=== PATIENT | male | born 1940 | race Caucasian/White ===

== ENCOUNTER → 2017-12-04 | Day surgery (SDC) | payer MEDICARE ==
[~2017-12-04] VITALS: Ht 185.4 cm; Wt 88.0 kg
[~2017-12-04] MED LIST: ACETAMINOPHEN 325 MG TAB PO PRN; ASCO500T16 PO; ASPI81TA28 PO; ATROPINE SULFATE 0.1 MG/ML 5ML SYR IV PRN; CHOL100040 PO; CLIN300C10 PO; FENTANYL CITRATE INJ 50 MCG/1 ML 2 ML VIAL ONE; FLUV100T12 PO; HEPARIN SOD (PORCINE) 1000 UNIT/ML 10 ML VIAL ONE; LISI-787 PO; LORA-741 PO; LORA10TA51 PO; MIDAZOLAM HCL 1 MG/ML 2ML VIAL ONE; MULT-884 PO; NITROGLYCERIN/D5W 100MCG/ML 20ML SYR ONE; NiCARDipine HCL INJ 2.5 MG/ML 10 ML AMP ONE; POTA-335 PO; PROB1TAB16 PO; SIMV20TA2 PO; SODIUM CHLORIDE 0.9% 1000ML 1,000 ML IV SCH; SODIUM CHLORIDE 0.9% 1000ML 250 ML IV PRN
[2017-12-04 07:20] VITALS: BP 160/93; PULSE 72; TEMP 36.8; O2SAT 96; Ht 185.4 cm; Wt 88.0 kg
--- NOTE | 2017-12-04 09:05 | History & Physical Bridge Note ---
H&P Re-Evaluation Bridge Note: I have examined the patient, reviewed the History & Physical and in the interval since the performance of the History & Physical I have noted the following changes of clinical significance: No changes noted
--- NOTE | 2017-12-04 09:05 | Pre Sedation Assessment ---
Pre Sedation Assessment General Date of Sedation: Dec 04, 2017. Vital Signs Past 12 Hours Date Time Temp Pulse Resp B/P (MAP) Pulse Ox O2 Delivery O2 Flow Rate FiO2 12/04/17 08:58 70 18 138/80 (99) 98 Room Air 12/04/17 07:20 36.8 72 18 160/93 (115) 96 Room Air Review Cardiovascular: regular rate, rhythm, + systolic murmur Lungs: lungs clear Pre-Sedation Airway Assessment Smoking Status: Never Smoker Hx of Sleep Apnea: No Short Thick Neck: No Thyro-mental Distance: > 3 Finger Breadths Oral Cavity: WNL Mallampati Classification: Class I ASA Classification: Class II NPO Status Date of Last Intake of Fluids: Dec 03, 2017 Date of Last Intake of Solids: Dec 03, 2017 Procedure Planning Contraindications for Sedation: None Current Medications Reviewed: Yes Notes The planned sedation has been discussed with the patient. Informed Consent was obtained. I have identified the patient, determined the appropriateness of sedation and have assessed the patient immediately prior to the procedure. All medicine(s) and interventions are by my order.
--- NOTE | 2017-12-04 09:19 | [facility] Post Operative Brief Note ---
Preliminary Procedure Note Procedure Date Dec 04, 2017. Pre-Procedure Diagnosis Valvular Disease AUC Score 7 Post-Procedure Diagnosis Mild CAD Procedure(s) Performed Coronary Angiography [employer] Dr. Ziyad Mccarty Kettle Chipper(s) Hugh Enciso Estimated Blood Loss <15cc Medication(s) Fentanyl (12.5 mcg IV), Heparin (5000u IV), Nicardipine (250mcg intraarterial after radial sheath inserted and prior to removal), Versed (1mg IV), Lidocaine 1 % (local infiltration) Preliminary Findings Right dominant coronary anatomy Mild coronary calcification and luminal irregularities LM long no disease LAD large type 3 with 30% mid vessel stenosis only. Large high diagonal LCX large but nondominant with bifurcating OM RCA Dominant, moderate caliber Recommendations valve replacement Specimens None Fluids (cc crystalloids) 120 Anesthesia Start 0841 End 0858 Tati Locke RN Procedural Complication(s) None Disposition Human Resource Officer Holding/Recovery
--- NOTE | 2017-12-04 09:30 | Cardiac Catheterization ---
Procedure Note Procedure Date Dec 04, 2017. Pre-Procedure Diagnosis Valvular Disease AUC Score 7 Post-Procedure Diagnosis Mild CAD Procedure(s) Performed Coronary Angiography Precise [facility] Dr. Ziyad Mccarty Recycling Tech(s) Hugh Gerardo Estimated Blood Loss <15cc Medication(s) Fentanyl (12.5 mcg IV), Heparin (5000u IV), Nicardipine (250 mcg intraarterial after radial sheath insertion and prior to removal), Versed (1mg IV), Lidocaine 1% (local infiltration) Summary of Findings Right dominant coronary anatomy Mild coronary calcification and luminal irregularities LM long no disease LAD large type 3 with 30% mid vessel stenosis only. Large high diagonal LCX large but nondominant with bifurcating OM RCA Dominant, moderate caliber AV calcified with restricted mobility Hemodynamics Rest Ao: 122/55/97 Final Ao: 138/66/97 LV: Did not cross AV Recommendations valve replacement Specimens None Radiation Exposure (mGy) 928 Contrast (mls) 62 Fluids (cc crystalloids) 120 Anesthesia Start 0841 End 0858 Tati Locke RN Procedural Complication(s) None Disposition Inbound Call Center Agent Holding/Recovery ACC Data Cardiac Status Clinical evaluation leading to the procedure CAD Presntation: Positive Stress Test Anginal Classification: CCS II Heart Failure: No Cardiogenic Shock w/in 24Hrs: No Cardiac Arrest w/in 24Hrs: Yes Imaging studies past 6 months: Yes Stress studies past 6 months: Yes Standard Exercise Stress Test: No Stress Echocardiogram: Yes - Positive Stress Testing w/SPECT MPI: No Cardiac CTA: No Coronary Anatomy Dominant: Right Left Main (% Stenosis): Normal LAD (% Stenosis): Mid (30) D1 (% Stenosis): Normal Circumflex (% Stenosis): Normal OM1 (% Stenosis): Normal RCA (% Stenosis): Normal R PDA (% Stenosis): Normal R PL1 (% Stenosis): Normal Diagnostic Physician's Name: Ziyad Mccarty M.D. Status: Elective Closure Device Percutaneous Entry Location: Radial Closure Device: Radial Band Recommendations: valve replacement
--- NOTE | 2017-12-04 09:32 | Discharge Instructions ---
Discharge Instructions Procedure Procedure Date: Dec 04, 2017. Reason for Visit: Severe Aortic Stenosis *Dr Lul Pierce*. Discharge Discharge Date: Dec 04, 2017. Discharge Diagnosis: Calcific aortic valve stenosis, Minimal coronary artery disease Last Recorded Wt (Kilograms): 88 Anesthesia Post Anesthesia Instructions: If you have had General Anesthesia or IV Sedation: * Do not drive today. * Resume driving when surgeon permits. * Do not make important decisions or sign legal documents today. * Call surgeon for: 1. Temperature elevations greater than 101 degrees F. 2. Uncontrollable pain. 3. Excessive bleeding. 4. Persistent nausea and vomiting. 5. Medication intolerance (nausea, vomiting or rash). * For nausea and vomiting use only clear liquids such as: tea, soda, bouillon until nausea subsides, then gradually increase diet as tolerated. * If you have any concerns or questions, call your surgeon's office. If physician is unavailable and it is an emergency, call 911 or go to the nearest emergency room. Instructions Activity Recommendations: limitations as noted below Recommended Home Diet: resume previous diet Allergies: Coded Allergies: Cephalexin (Verified Adverse Reaction, Unknown, diarrhea, 09/22/16) Metronidazole (Verified Adverse Reaction, Unknown, diarrhea, 09/22/16) Provider Instructions ACTIVITY RECOMMENDATIONS: Excess manipulation of the wrist should be avoided for the next 24-48 hours. * No lifting over 2 pounds (approximately a 1/2 gallon of milk) with the utilized arm for 24 hours. * No strenuous activity such as bowling or tennis for 3 days. * Keep the site of the procedure covered with a bandage for 24 hours. *You may shower the day after the procedure. Do not take a tub bath or submerge the puncture site in water for the next 3 days. *Do not operate any motorized equipment for 3 days. SPECIAL CARE INSTRUCTIONS: The site may be slightly bruised and sore following your procedure. Should any of the following occur, contact the Dr. who performed your procedure. 1. Redness/inflammation, swelling, chills, or fever, or colored drainage at procedure site within 3-7 days after your procedure. 2. Coldness, discoloration, ongoing numbness, severe pain, or swelling. Expect mild tingling of hand and tenderness at the puncture site for up to three days. If this persists beyond three days, or other symptoms develop, notify the Dr. who performed your procedure. BLEEDING: If the procedure site on your wrist begins to bleed, do not panic 1. Place 1 or 2 fingers firmly just slightly above the insertion site to stop the bleeding. You may be able to feel your pulse as you hold pressure. 2. Lift your finger after 5 minutes to see if the bleeding has stopped. 3. Once the bleeding has stopped, gently wipe the wrist area clean with a bandage. * If the bleeding from your wrist does not stop after 10 minutes, or if there is a large amount of bleeding or spurting, call 911 (do not drive yourself to the hospital). SKIN IRRITATION: * You may experience some redness and/or swelling in the area where radiation was administered. If any skin irritation occurs, please contact your family physician. FOLLOW UP VISIT: Keep any scheduled doctor appointments. Follow Up Additional Instructions: ACTIVITY RECOMMENDATIONS: Excess manipulation of the wrist should be avoided for the next 24-48 hours. * No lifting over 2 pounds (approximately a 1/2 gallon of milk) with the utilized arm for 24 hours. * No strenuous activity such as bowling or tennis for 3 days. * Keep the site of the procedure covered with a bandage for 24 hours. *You may shower the day after the procedure. Do not take a tub bath or submerge the puncture site in water for the next 3 days. *Do not operate any motorized equipment for 3 days. SPECIAL CARE INSTRUCTIONS: The site may be slightly bruised and sore following your procedure. Should any of the following occur, contact the Dr. who performed your procedure. 1. Redness/inflammation, swelling, chills, or fever, or colored drainage at procedure site within 3-7 days after your procedure. 2. Coldness, discoloration, ongoing numbness, severe pain, or swelling. Expect mild tingling of hand and tenderness at the puncture site for up to three days. If this persists beyond three days, or other symptoms develop, notify the Dr. who performed your procedure. BLEEDING: If the procedure site on your wrist begins to bleed, do not panic 1. Place 1 or 2 fingers firmly just slightly above the insertion site to stop the bleeding. You may be able to feel your pulse as you hold pressure. 2. Lift your finger after 5 minutes to see if the bleeding has stopped. 3. Once the bleeding has stopped, gently wipe the wrist area clean with a bandage. * If the bleeding from your wrist does not stop after 10 minutes, or if there is a large amount of bleeding or spurting, call 911 (do not drive yourself to the hospital). SKIN IRRITATION: * You may experience some redness and/or swelling in the area where radiation was administered. If any skin irritation occurs, please contact your family physician. FOLLOW UP VISIT: Keep any scheduled doctor appointments. Follow-up with: Cardiovascular Surgery as scheduled 12/08/17 Lazara Macias Recommendations: Call your doctor if: * Temperature above 101 degrees * Pain not relieved by pain medicine ordered * There is increased drainage or redness from any incision * You have any unanswered questions or concerns. Your Doctors Instructions noted above were prepared by provider Ziyad Mccarty. Patient Signature Section: Patient Instructions Signature Page Johan Wilson Patient (or Guardian) Signature/Date: I have read and understand the instructions given to me by my caregivers. Caregiver/RN/Doctor Signature/Date: The above-named patient and/or guardian has received patient instructions on this date. + Original Patient Signature Page (only) stays with chart. Please make copy for patient.
[2017-12-04 11:00] VITALS: BP 148/64; PULSE 60; O2SAT 98
== END | disposition home or self-care (01) ==
LOC: C.CATH 07:00
PROVIDERS: ATTEND Internal Medicine Cardiovascular Disease
DX: I35.0 Nonrheumatic aortic (valve) stenosis (principal); I25.10 Atherosclerotic heart disease of native coronary artery without angina pectoris; I10 Essential (primary) hypertension; E78.5 Hyperlipidemia, unspecified; Z79.899 Other long term (current) drug therapy; Z79.82 Long term (current) use of aspirin; Z98.41 Cataract extraction status, right eye; Z98.890 Other specified postprocedural states

== ENCOUNTER 2021-04-28 14:32 | Inpatient (IN) ==
[2021-04-28] MEDS ORDERED: SODIUM CHLORIDE 0.9% 1000ML 1,000 ML IV STA (14:41)
[2021-04-28] MEDS ORDERED: LIDOCAINE/EPINEPHRINE 1% 20 ML VIAL INFIL ONE (14:48)
--- NOTE | 2021-04-28 15:08 | Emergency Department Note ---
History of Present Illness General Chief complaint: Syncope Stated complaint: HAVING BLACK OUT SPELLS-DOC REF Time Seen by Provider: 04/28/21 14:41 History of Present Illness Provider complaint: Syncopal episode Onset (ago): hour(s) 2 Location: head Radiation: non-radiation Severity: mild Quality: + aching Relieved By: + none Exacerbated By: + none Associated symptoms: no confusion, no chest pain, no cough, no fever/chills, no headaches, no nausea/vomiting, no rash, no shortness of breath, no syncope and no weakness 80-year-old male presents emergency department status post syncopal episode. Patient reports he was outside with weeding and then he passed out and hit his head. Patient states that the third syncopal episode he has had in the last week. Patient states he has a problem with syncope and is scheduled by Dr. Lul hopkins to have a pacemaker inserted next week. Denies any chest pain difficulty breathing or headaches at this time. Patient states he called [facility] and spoke with Dr. Dye who is on-call who told him to come into the hospital. Home Medications Medication Instructions Recorded Confirmed Type aspirin [Aspirin Low Dose] 81 mg PO QAM 04/09/21 04/28/21 History fluvoxamine 200 mg PO HS 04/09/21 04/28/21 History lorazepam 0.5 mg PO BID 04/09/21 04/28/21 History metoprolol tartrate 25 mg PO QAM 04/09/21 04/28/21 History multivitamin 1 tab PO QAM 04/09/21 04/28/21 History simvastatin 20 mg PO QAM 04/09/21 04/28/21 History lisinopril 10 mg PO DAILY 04/28/21 04/28/21 History Allergies Allergy/AdvReac Type Severity Reaction Status Date / Time cephalexin AdvReac Intermediate diarrhea Verified 04/28/21 15:39 metronidazole AdvReac Intermediate diarrhea Verified 04/28/21 15:39 Past Med/Surg History Medical History (Updated 04/28/21 @ 18:11 by Andrez Elizabeth) Basal cell carcinoma Dyslipidemia GERD (gastroesophageal reflux disease) HTN (hypertension) Surgical History (Updated 04/28/21 @ 18:01 by Jany Bates MD) H/O colonoscopy with polypectomy "03/01/02- polyp at 15cm (hyperplastic) " Social History Smoking Status: Never smoker Preferred Language: Kittitian Feels Safe at Home: Yes Review of Systems A total of 10 systems reviewed and were otherwise negative Physical Exam Vital Signs Vital Signs - 24 hr 04/28/21 14:35 04/28/21 14:42 04/28/21 16:34 Temperature 36.6 C Temperature Source Temporal Artery Scan Pulse Rate 106 H Respiratory Rate 18 Respiratory Effort / Characteristics Non-Labored Spontaneous Respiratory Depth Normal Respiratory Pattern Regular Blood Pressure 159/98 H Blood Pressure [Right Arm] 173/87 H Blood Pressure Mean 118 Blood Pressure Mean [Right Arm] 115 Pulse Oximetry 99 Oxygen Delivery Method Room Air Room Air Sepsis Recent Fever Within 48 Hours No Sepsis New/Unexplained Change in Mental Status No Sepsis Action Taken by Nursing No Action Required Physical Exam GENERAL: He is oriented to person, place, and time. He appears well-developed and well-nourished. He does not appear distressed. HENT: Exam performed. - Head: 2 cm laceration over the right parietal area. No active bleeding. - Right Ear: External ear normal. No mastoid tenderness. - Left Ear: External ear normal. No mastoid tenderness. - Mouth/Throat: The oropharynx is clear and moist. No trismus in the jaw. No dental abscesses or uvula swelling. No oropharyngeal exudate or tonsillar abscesses. EYES: Conjunctivae and EOM are normal. Pupils are equal, round, and reactive to light. Right eye exhibits no discharge. Left eye exhibits no discharge. No scleral icterus. NECK: Normal range of motion. Neck supple. No JVD present. No spinous process tenderness present. No carotid bruit present. No rigidity. No tracheal deviation and normal range of motion present. No Brudzinski's sign and no Kernig's sign noted. CV: Normal rate, regular rhythm, normal heart sounds and intact distal pulses. There is no peripheral edema. Palpable radial pulses bue. PULM/CHEST: Effort normal and breath sounds normal. No respiratory distress. No stridor. He has no wheezes. He has no rales. - Chest Wall: He exhibits no tenderness. ABD: The abdomen is soft. Bowel sounds are normal. He has no distension. No mass is present. There is no tenderness. There is no rebound, no guarding, no Grant's sign and no tenderness at McBurney's point. Rovsig negative. MUSC/SKEL: Normal range of motion. There is no peripheral edema, tenderness or deformity. LYMPH: No cervical adenopathy. NEURO: He is alert and oriented to person, place, and time. He has normal strength. No cranial nerve deficit or sensory deficit. Coordination and gait normal. GCS eye subscore is 4. GCS verbal subscore is 5. GCS motor subscore is 6. Cerebellar tests wnl. SKIN: Skin is warm and dry. He is not diaphoretic. PSYCH: He has a normal mood and affect. Behavior is normal. Judgment and thought content normal. Procedures Laceration Laceration 1: Site: scalp Side (If applicable): right Size (cm): 2 Description: linear Depth: simple, single layer Local Anesthetic: lidocaine 1% and with epi Amount of anesthesia used (mL): 6 Pre-repair: wound explored, irrigated extensively and deep structures intact Skin layer closed with: other (naima) Number of sutures: 3 Course Course 1441: The patient was evaluated in room B6. A complete history and physical exam was performed Cardiac monitoring: An order was placed for continuous cardiac monitoring. The monitor shows a rate of 105 with sinus tachycardia rhythm Dr. Dye [facility] cardiology called in and stated to have the patient admitted after initial evaluation as he needs a pacemaker placed sooner than later given his recurrent syncopal episode. 1700: Vital signs stable. Labs within normal limits with exception of elevated troponin. Imaging shows no acute traumatic injury. Laceration repaired see procedure note. [facility] and recurrent falls. Dr. Bates to admit. Administered Medications Discontinued Medications Sodium Chloride (Nss 1000ml) 1,000 mls @ 999 mls/hr IV .Q1H1M STA Stop: 04/28/21 15:41 Last Infusion: 04/28/21 17:00 Dose: 0 mls/hr Documented by: [id number] Admin: 04/28/21 15:30 Dose: 999 mls/hr Documented by: [id number] Lidocaine/Epinephrine (Lidocaine/Epinephrine 1% 20 Ml Vial) 20 ml INFIL NOW ONE Stop: 04/28/21 14:49 Last Admin: 04/28/21 15:30 Dose: 20 ml Documented by: [id number] Medical Decision Making Laboratory Data Result diagrams: 04/28/21 15:20 04/28/21 15:20 Lab Results 04/28/21 04/28/21 04/28/21 Range/Units 15:20 15:20 17:09 WBC 6.26 (4.8-10.8) K/uL RBC 4.67 L (4.7-6.1) M/uL Hgb 14.9 (14.0-18.0) g/dL Hct 43.1 (42-52) % MCV 92.3 (80-100) fL MCH 31.9 (25-34) pg MCHC 34.6 (32-36) g/dL RDW Std Deviation 41.6 (36.4-46.3) fL RDW Coeff of Cole 12.4 (11.5-14.5) % Plt Count 175 (130-400) K/uL MPV 9.9 (7.4-10.4) fL Immature Gran % (Auto) 0.2 % Neut % (Auto) 74.5 % Lymph % (Auto) 13.3 % Dickinson % (Auto) 10.7 % Eos % (Auto) 1.0 % Baso % (Auto) 0.3 % Neut # (Auto) 4.67 (1.4-6.5) K/uL Lymph # (Auto) 0.83 L (1.2-3.4) K/uL Dickinson # (Auto) 0.67 H (0.11-0.59) K/uL Eos # (Auto) 0.06 (0-0.5) K/uL Baso # (Auto) 0.02 (0-0.2) K/uL Immature Gran # (Auto) 0.01 (0.00-0.02) K/uL Sodium 143 (136-145) mmol/L Potassium 3.9 (3.5-5.1) mmol/L Chloride 109 H (98-107) mmol/L Carbon Dioxide 29 (21-32) mmol/L Anion Gap 5.0 (3-11) BUN 15 (7-18) mg/dl Creatinine 1.29 (0.6-1.4) mg/dl Est Cr Clr Drug Dosing 49.9 ml/min Est GFR ( Amer) 59.4 ml/min Est GFR (Non-Af Amer) 51.3 ml/min BUN/Creatinine Ratio 11.3 (10-20) Glucose 136 H (70-99) mg/dl Calcium 9.3 (8.5-10.1) mg/dl Total Bilirubin 0.4 (0.2-1) mg/dl AST 24 (15-37) U/L ALT 28 (12-78) U/L Alkaline Phosphatase 87 (45-117) U/L Troponin I 0.059 H* (0-0.045) ng/ml Total Protein 7.4 (6.4-8.2) gm/dl Albumin 3.8 (3.4-5.0) gm/dl Globulin 3.6 (2.5-4.0) gm/dl Albumin/Globulin Ratio 1.1 (0.9-2) Lipase 268 (73-393) U/L COVID-19 Eval Order Covid19 at [facility] Imaging Data Radiologist's Impression: Cervical Spine CT 04/28/21 14:41 CT OF THE CERVICAL SPINE CLINICAL HISTORY: chi COMPARISON STUDY: No previous studies for comparison. CT DOSE: 217.80 mGy.cm TECHNIQUE: CT scan of the cervical spine was performed from the skull base to the thoracic inlet. Images are reviewed in the axial, sagittal, and coronal planes. IV contrast was not administered for this examination. A dose lowering technique was utilized adhering to the principles of ALARA. FINDINGS: The visualized portions of the lung apices reveal no evidence of pneumothorax. The prevertebral soft tissues are normal. No fractures or subluxations are visualized. There is a loss of normal cervical lordosis. There are multilevel degenerative changes, most severe at C5-C6 level IMPRESSION: No evidence of acute fracture or traumatic subluxation. ACT 112: Negative or not required by law. The above report was generated using voice recognition software. It may contain grammatical, syntax or spelling errors. Electronically signed by: Patti Bryan DO 04/28/2021 4:[address] 04/28/21 14:41 CT head/brain wo con CLINICAL HISTORY: chi COMPARISON STUDY: April 09, 2021 TECHNIQUE: Axial CT of the brain is performed from the vertex to the skull base. IV contrast was not administered for this examination. A dose lowering technique was utilized adhering to the principles of ALARA. CT DOSE: FINDINGS: No intra or extra-axial mass lesions are visualized. There is no CT evidence of acute cortical infarction. There is no evidence of midline shift. There is no acute hemorrhage. No acute depressed calvarial fractures are visualized. There are patchy white matter hypodensities likely on a small vessel basis. Atrophic changes of brain parenchyma are seen and associated with ex vacuo dilatation of ventricles. There is no evidence of acute sinusitis. Evaluation is slightly limited due to motion artifact. IMPRESSION: No acute intracranial hemorrhage, no midline shift or space occupying lesions. Slightly limited exam due to motion artifact. ACT 112: Negative or not required by law. The above report was generated using voice recognition software. It may contain grammatical, syntax or spelling errors. Electronically signed by: Patti Bryan DO 04/28/2021 4:42 PM Chest X-Ray 04/28/21 14:42 XR chest 1V portable CLINICAL HISTORY: Chest Pain COMPARISON STUDY: No previous studies for comparison. FINDINGS: No pneumothorax. No pleural effusion. No large infiltrates or consolidative lesions are seen. Lung volumes are decreased with crowded lung markings Cardiomediastinal silhouette is within normal limits in size. No significant pulmonary vascular congestion.. Aorta is calcified Osseous structures: Degenerative changes of the spine. Midline sternotomy wires and prosthetic aortic valve are seen. IMPRESSION: 1. No acute pulmonary process. ACT 112: Negative or not required by law. The above report was generated using voice recognition software. It may contain grammatical, syntax or spelling errors. Electronically signed by: Patti Bryan DO 04/28/2021 3:19 PM ECG Data Indication: + syncope Rate (beats per minute): 85 Rhythm: + normal sinus ECG Intervals/blocks: + Left bundle branch block, + Normal CO and + Normal QT-c ECG ST segments: + Normal ST segments Comparison ECG Date: from (04/09/21) Change: no significant change Additional Comments: sgarbosa negative MDM Narrative 1441: The patient was evaluated in room B6. A complete history and physical exam was performed Cardiac monitoring: An order was placed for continuous cardiac monitoring. The monitor shows a rate of 105 with sinus tachycardia rhythm Dr. Hardik Arguelles cardiology called in and stated to have the patient admitted after initial evaluation as he needs a pacemaker placed sooner than later given his recurrent syncopal episode. 1700: Vital signs stable. Labs within normal limits with exception of elevated troponin. Imaging shows no acute traumatic injury. Laceration repaired see procedure note. We will plan on admitting the patient to [facility] hospitalist team for cardiology evaluation for his pacemaker and recurrent falls. Dr. Bates to admit. Impression & Plan Syncope and collapse, CHI (closed head injury), Laceration of scalp Discharge Plan Visit Data Chief Complaint: Syncope Stated Complaint: HAVING BLACK OUT SPELLS-DOC REF ED Provider: Andrez Elizabeth Discharge Problem: Syncope and collapse, CHI (closed head injury), Laceration of scalp Patient Disposition: Being Evaluated by Hospitalist Forms Stand Alone Forms: [facility] Prescriptions Prescriptions: No Action multivitamin Tablet 1 tab PO QAM RF: 0 aspirin [Aspirin Low Dose] 81 mg Tablet,Delayed Release (Dr/Ec) 81 mg PO QAM RF: 0 lorazepam 0.5 mg tablet 0.5 mg PO BID RF: 0 fluvoxamine 100 mg tablet 200 mg PO HS RF: 0 simvastatin 20 mg tablet 20 mg PO QAM RF: 0 metoprolol tartrate 25 mg tablet 25 mg PO QAM RF: 0 lisinopril 10 mg tablet 10 mg PO DAILY RF: 0 Referrals Referrals: Sudhir Roberts MD [Primary Care Provider] - Discharge Problem: CHI (closed head injury) Qualifiers: Encounter type: initial encounter Qualified Code(s): S09.90XA - Unspecified injury of head, initial encounter Laceration of scalp Qualifiers: Encounter type: initial encounter Qualified Code(s): S01.01XA - Laceration without foreign body of scalp, initial encounter
--- NOTE | 2021-04-28 15:20 | XRay Report ---
XR chest 1V portable CLINICAL HISTORY: Chest Pain COMPARISON STUDY: No previous studies for comparison. FINDINGS: No pneumothorax. No pleural effusion. No large infiltrates or consolidative lesions are seen. Lung volumes are decreased with crowded lung markings Cardiomediastinal silhouette is within normal limits in size. No significant pulmonary vascular congestion.. Aorta is calcified Osseous structures: Degenerative changes of the spine. Midline sternotomy wires and prosthetic aortic valve are seen. IMPRESSION: 1. No acute pulmonary process. ACT 112: Negative or not required by law. The above report was generated using voice recognition software. It may contain grammatical, syntax o r spelling errors. Electronically signed by: Patti Bryan DO 04/28/2021 3:19 PM
[2021-04-28 15:40] LABS: Basophils # (auto) 0.02 K/uL (0-0.2); Basophils % (auto) 0.3 %; Eosinophils # (auto) 0.06 K/uL (0-0.5); Hematocrit (blood only) 43.1 % (42-52); Hemoglobin 14.9 g/dL (14.0-18.0); Immature Granulocytes # (auto) 0.01 K/uL (0.00-0.02); Immature Granulocytes % (auto) 0.2 %; Lymphocytes # (auto) 0.83 K/uL (1.2-3.4); Lymphocytes % (auto) 13.3 %; Mean Corpuscular Hemoglobin 31.9 pg (25-34); Mean Corpuscular Hgb Conc 34.6 g/dL (32-36); Mean Corpuscular Volume 92.3 fL (80-100); Mean Platelet Volume 9.9 fL (7.4-10.4); Monocytes # (auto) 0.67 K/uL (0.11-0.59); Monocytes % (auto) 10.7 %; Neutrophils # (auto) 4.67 K/uL (1.4-6.5); Neutrophils % (auto) 74.5 %; Platelet Count 175 K/uL (130-400); RDW Coefficient of Variation 12.4 % (11.5-14.5); RDW Standard Deviation 41.6 fL (36.4-46.3); Red Blood Count 4.67 M/uL (4.7-6.1); White Blood Count 6.26 K/uL (4.8-10.8)
[2021-04-28 16:00] LABS: Albumin Level 3.8 gm/dl (3.4-5.0); BUN Creatinine Ratio 11.3 (10-20); Calcium 9.3 mg/dl (8.5-10.1); Creatinine Clr Calc Pharmacy 49.9 ml/min; Est GFR (African American) 59.4 ml/min; Est GFR (Non-African American) 51.3 ml/min; Potassium 3.9 mmol/L (3.5-5.1)
[2021-04-28 16:09] LABS: Albumin Globulin Ratio 1.1 (0.9-2); Bilirubin,Total 0.4 mg/dl (0.2-1); Globulin 3.6 gm/dl (2.5-4.0); Total Protein 7.4 gm/dl (6.4-8.2); Troponin I 0.059 ng/ml (0-0.045)
--- NOTE | 2021-04-28 16:43 | CT Scan Report ---
CT head/brain wo con CLINICAL HISTORY: chi COMPARISON STUDY: April 09, 2021 TECHNIQUE: Axial CT of the brain is performed from the vertex to the skull base. IV contrast was not administered for this examination. A dose lowering technique was utilized adhering to the principles of ALARA. CT DOSE: FINDINGS: No intra or extra-axial mass lesions are visualized. There is no CT evidence of acute cortical infarc tion. There is no evidence of midline shift. There is no acute hemorrhage. No acute depressed calvar ial fractures are visualized. There are patchy white matter hypodensities likely on a small vessel basis. Atrophic changes of brain parenchyma are seen and associated with ex vacuo dilatation of ventricles. There is no evidence of acute sinusitis. Evaluation is slightly limited due to motion artifact. IMPRESSION: No acute intracranial hemorrhage, no midline shift or space occupying lesions. Slightly limited exam due to motion artifact. ACT 112: Negative or not required by law. The above report was generated using voice recognition software. It may contain grammatical, syntax o r spelling errors. Electronically signed by: Patti Bryan DO 04/28/2021 4:42 PM
--- NOTE | 2021-04-28 17:00 | CT Scan Report ---
CT OF THE CERVICAL SPINE CLINICAL HISTORY: chi COMPARISON STUDY: No previous studies for comparison. CT DOSE: 217.80 mGy.cm TECHNIQUE: CT scan of the cervical spine was performed from the skull base to the thoracic inlet. Erin ges are reviewed in the axial, sagittal, and coronal planes. IV contrast was not administered for thi s examination. A dose lowering technique was utilized adhering to the principles of ALARA. FINDINGS: The visualized portions of the lung apices reveal no evidence of pneumothorax. The prevertebral soft tissues are normal. No fractures or subluxations are visualized. There is a loss of normal cervical lordosis. There are multilevel degenerative changes, most severe at C5-C6 level IMPRESSION: No evidence of acute fracture or traumatic subluxation. ACT 112: Negative or not required by law. The above report was generated using voice recognition software. It may contain grammatical, syntax o r spelling errors. Electronically signed by: Patti Bryan DO 04/28/2021 4:58 PM
--- NOTE | 2021-04-28 18:03 | History & Physical Report ---
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 Consult cardiology (2) S/P AVR (aortic valve replacement): (3) Hypertension: We will continue current medications for blood pressure except beta- guera (4) OCD (obsessive compulsive disorder): No acute anxiety and/or delirium Continue home medication DVT prophylaxis Subcu heparin CODE STATUS Full History of Present Illness Chief Complaint: Syncopal episode Primary Care Provider: Sudhir Roberts MD He is an 80-year-old male with significant past medical history of status post aortic valve replacement, hypertension, CAD mild disease by cath in 2018, VINCENT, obsessive-compulsive disorder, hyperlipidemia and chronic kidney disease was evaluated by cardiac electrophysiology yesterday for an emergent pacemaker. He has been complaining of syncopal episode due to ronna-arrhythmia for a while and was sent in to ER today by the necktie turner for admission and emergent cardiac pacemaker placement. He denies any chest pain but does have palpitation. Denies any shortness of breath. No fever no chills, and abdominal pain nausea no vomiting. He does not have any neurological symptoms. He was hemodynamically stable in the emergency room with blood pressure on the higher side at 173/87. An EKG did not show any significant bradyarrhythmias. He was admitted to telemetry unit for continuation of care and possible pacemaker placement on Friday. Allergies Allergy/AdvReac Type Severity Reaction Status Date / Time cephalexin AdvReac Intermediate diarrhea Verified 04/28/21 15:39 metronidazole AdvReac Intermediate diarrhea Verified 04/28/21 15:39 Home Medications Medication Instructions Recorded Confirmed Type aspirin [Aspirin Low Dose] 81 mg PO QAM 04/09/21 04/28/21 History fluvoxamine 200 mg PO HS 04/09/21 04/28/21 History lorazepam 0.5 mg PO BID 04/09/21 04/28/21 History metoprolol tartrate 25 mg PO QAM 04/09/21 04/28/21 History multivitamin 1 tab PO QAM 04/09/21 04/28/21 History simvastatin 20 mg PO QAM 04/09/21 04/28/21 History lisinopril 10 mg PO DAILY 04/28/21 04/28/21 History Past Med/Surg History Medical History (Updated 04/28/21 @ 18:11 by Andrez Elizabeth) Basal cell carcinoma Dyslipidemia GERD (gastroesophageal reflux disease) HTN (hypertension) Surgical History (Updated 04/28/21 @ 18:01 by Jany Bates MD) H/O colonoscopy with polypectomy "03/01/02- polyp at 15cm (hyperplastic) " Social History Smoking Status: Never smoker Preferred Language: Surinamese Feels Safe at Home: Yes Review of Systems Review of Systems: All systems reviewed & are unremarkable except as noted in HPI & below Physical Exam Physical Exam: Lying in bed comfortably Constitutional: well developed and well nourished; not ill appearing Eyes: PERRL, conjunctivae normal, anicteric sclerae ENMT: external ear and nose normal, oropharynx normal Neck: trachea midline, no thyromegaly Respiratory: no respiratory distress Auscultation: lungs clear to auscultation bilaterally Cardiovascular: Rate/Rhythm: regular rate and regular rhythm Heart Sounds: + murmur (2/6 ejection systolic murmur over precordium) Extremities: + edema (Trace to 1+ edema bilaterally) Gastrointestinal (Abdomen): Inspection/Auscultation: abdomen not distended Percussion/Palpation: abdomen soft; abdomen nontender Musculoskeletal: No acute arthritis in any joint Neurologic: Alert, awake and oriented x3. No focal sensory or no motor deficit appreciated Psychiatric: A+Ox3, euthymic affect Lymphatic: no cervical or axillary lymphadenopathy Results & Data Results & Data ([facility]) Vital Signs (Past 12 Hours) Vital Signs Temp Pulse Resp BP BP Pulse Ox 04/28/21 16:34 173/87 H 04/28/21 14:35 36.6 C 106 H 18 159/98 H 99 Laboratory Results Short CBC 04/28/21 Range/Units 15:20 WBC 6.26 (4.8-10.8) K/uL Hgb 14.9 (14.0-18.0) g/dL Hct 43.1 (42-52) % Plt Count 175 (130-400) K/uL [facility] 04/28/21 15:20 Sodium 143 Potassium 3.9 Chloride 109 H Carbon Dioxide 29 BUN 15 Creatinine 1.29 Glucose 136 H Calcium 9.3 Cardiac Enzymes 04/28/21 Range/Units 15:20 Troponin I 0.059 H* (0-0.045) ng/ml Liver Function 04/28/21 Range/Units 15:20 Total Bilirubin 0.4 (0.2-1) mg/dl AST 24 (15-37) U/L ALT 28 (12-78) U/L Alkaline Phosphatase 87 (45-117) U/L Albumin 3.8 (3.4-5.0) gm/dl Code Status & VTE Plan Code Status Full code VTE Prophylaxis Plan VTE Prophylaxis will be ordered: Yes
[2021-04-28] MEDS: HEPARIN SOD 5,000 UNIT/0.5 ML VIAL SQ SCH (20:54)
[2021-04-28] MEDS: lisinopril 10 MG TAB PO SCH (20:54)
[2021-04-28] MEDS: LORazepam 0.5 MG TAB PO SCH (20:54)
[2021-04-28] MEDS: NSS + 20MEQ KCL 20 MEQ/1,000 ML BAG IV SCH (20:55)
[2021-04-28] MEDS ORDERED: fluvoxaMINE MALEATE 50 MG TAB PO SCH (21:00)
--- NOTE | 2021-04-28 21:05 | Electrocardiogram Report ---
Test Reason : Blood Pressure : / mmHG Vent. Rate : 085 BPM Atrial Rate : 085 BPM P-R Int : 128 ms QRS Dur : 116 ms QT Int : 394 ms P-R-T Axes : 057 -15 120 degrees QTc Int : 468 ms Normal sinus rhythm Left bundle branch block Abnormal ECG Confirmed by Jaquan Underwood ([id number]) on 04/28/2021 9:05:40 PM Referred By: Ziyad Mccarty Confirmed By:Avni Underwood
[2021-04-28] MEDS ORDERED: hydrALAZINE HCL 20 MG/ML VIAL IV STA (23:36)
[2021-04-29 03:08] LABS: Basophils # (auto) 0.01 K/uL (0-0.2); Basophils % (auto) 0.2 %; Eosinophils # (auto) 0.07 K/uL (0-0.5); Eosinophils % (auto) 1.2 %; Hematocrit (blood only) 40.8 % (42-52); Hemoglobin 14.2 g/dL (14.0-18.0); Immature Granulocytes # (auto) 0.01 K/uL (0.00-0.02); Immature Granulocytes % (auto) 0.2 %; Lymphocytes # (auto) 1.32 K/uL (1.2-3.4); Mean Corpuscular Hemoglobin 31.8 pg (25-34); Mean Corpuscular Hgb Conc 34.8 g/dL (32-36); Mean Corpuscular Volume 91.5 fL (80-100); Mean Platelet Volume 9.4 fL (7.4-10.4); Monocytes # (auto) 0.59 K/uL (0.11-0.59); Monocytes % (auto) 10.3 %; Neutrophils # (auto) 3.75 K/uL (1.4-6.5); Neutrophils % (auto) 65.1 %; Platelet Count 164 K/uL (130-400); RDW Coefficient of Variation 12.2 % (11.5-14.5); RDW Standard Deviation 41.1 fL (36.4-46.3); Red Blood Count 4.46 M/uL (4.7-6.1); White Blood Count 5.75 K/uL (4.8-10.8)
[2021-04-29 03:39] LABS: Calcium 8.8 mg/dl (8.5-10.1); Est GFR (African American) 72.9 ml/min; Est GFR (Non-African American) 62.9 ml/min; Phosphorus 2.6 mg/dl (2.5-4.9); Potassium 4.1 mmol/L (3.5-5.1)
[2021-04-29] MEDS ORDERED: lisinopril 10 MG TAB PO STA (04:16)
[2021-04-29] MEDS: lisinopril 10 MG TAB PO SCH (08:57)
[2021-04-29] MEDS: ASPIRIN 81 MG ECTAB PO SCH (08:57)
[2021-04-29] MEDS: SIMVASTATIN 20 MG TAB PO SCH (08:57)
[2021-04-29] MEDS: HEPARIN SOD 5,000 UNIT/0.5 ML VIAL SQ SCH ×2 (08:57→20:10)
[2021-04-29] MEDS: MULTIVITAMIN TAB PO SCH (08:57)
[2021-04-29] MEDS: LORazepam 0.5 MG TAB PO SCH ×2 (09:00→20:10)
[2021-04-29] MEDS: NSS + 20MEQ KCL 20 MEQ/1,000 ML BAG IV SCH (10:07)
--- NOTE | 2021-04-29 11:58 | Cardiology Consultation ---
Date of Consultation April 29, 2021 Assessment & Plan (1) Syncope and collapse: (2) Laceration of scalp: (3) S/P AVR (aortic valve replacement): (4) Tachy-ronna syndrome: Spoke with Dr. Sepulvdea over the phone. She will be available to place a permanent pacemaker tomorrow. For now he will remain on telemetry. N.p.o. after midnight. History of Present Illness Attending Physician: Jany Bates MD History of Present Illness This is an 80-year-old male patient who has been having syncopal events. He was seen by Dr. Sepulveda in the office on Friday who recommended a permanent pacemaker for tachybradycardia syndrome or sick sinus. Unfortunately yesterday he had another event where he passed out. No significant trauma. He contacted me through the answering service and I recommended he come to the emergency department where he has been admitted. After admission he has had no further syncopal events and his heart rhythm has been stable on telemetry. Allergies Allergy/AdvReac Type Severity Reaction Status Date / Time cephalexin AdvReac Intermediate diarrhea Verified 04/28/21 15:39 metronidazole AdvReac Intermediate diarrhea Verified 04/28/21 15:39 Home Medications Medication Instructions Recorded Confirmed Type aspirin [Aspirin Low Dose] 81 mg PO QAM 04/09/21 04/28/21 History fluvoxamine 200 mg PO HS 04/09/21 04/28/21 History lorazepam 0.5 mg PO BID 04/09/21 04/28/21 History metoprolol tartrate 25 mg PO QAM 04/09/21 04/28/21 History multivitamin 1 tab PO QAM 04/09/21 04/28/21 History simvastatin 20 mg PO QAM 04/09/21 04/28/21 History lisinopril 10 mg PO DAILY 04/28/21 04/28/21 History Patient History Medical History Basal cell carcinoma Dyslipidemia GERD (gastroesophageal reflux disease) HTN (hypertension) Surgical History H/O colonoscopy with polypectomy "03/01/02- polyp at 15cm (hyperplastic) " Social History Smoking Status: Never smoker Hx Alcohol Use: No Hx Substance Use: No Preferred Language: [place] Islander Intake Counselor Required: No Beliefs That Will Affect Care: Yazdanism Current Living Situation: Spouse Current Living Situation Comment: Lives with at home Feels Safe at Home: Yes Safety Concerns: Feels Safe At This Time Assistive Devices: None Review of Systems Review of Systems: All systems reviewed & are unremarkable except as noted in HPI & below Nothing additional to add. Physical Exam Physical Exam: General: no acute distress and stated age Head: normocephalic, no masses, lesions, tenderness or abnormalities Eyes: conjunctiva are pink and non-injected, sclera clear Neck: supple, no adenopathy, no bruits, normal jugular venous pulse, no hepatojugular reflux Chest: normal shape and normal respiratory effort Lungs: clear to auscultation and percussion Cardiac Exam: - regular rate & rhythm, no murmurs gallops or rubs - normal S1, normal S2 Pulses: 2(+) throughout Abdomen: abdomen soft, non-tender, no abnormal masses and no hepatosplenomegaly Musculoskeletal: no gait disturbance, no joint inflammation, no deforming arthritis Extremities: no edema and no cyanosis Neuro: grossly normal exam Results & Data ([facility]) Vital Signs (Past 12 Hours) Vital Signs Temp Pulse Pulse Resp BP Pulse Ox 04/29/21 08:08 36.5 C 75 18 164/84 H 94 04/29/21 07:56 115 H 04/29/21 04:12 36.6 C 75 18 193/77 H 96 04/29/21 00:06 85 Laboratory Results Laboratory Results - last 24 hr 04/28/21 04/28/21 04/28/21 15:20 15:20 17:09 WBC 6.26 RBC 4.67 L Hgb 14.9 Hct 43.1 MCV 92.3 MCH 31.9 MCHC 34.6 RDW Std Deviation 41.6 RDW Coeff of Cole 12.4 Plt Count 175 MPV 9.9 Immature Gran % (Auto) 0.2 Neut % (Auto) 74.5 Lymph % (Auto) 13.3 [place] % (Auto) 10.7 Eos % (Auto) 1.0 Baso % (Auto) 0.3 Neut # (Auto) 4.67 Lymph # (Auto) 0.83 L [place] # (Auto) 0.67 H Eos # (Auto) 0.06 Baso # (Auto) 0.02 Immature Gran # (Auto) 0.01 Sodium 143 Potassium 3.9 Chloride 109 H Carbon Dioxide 29 Anion Gap 5.0 BUN 15 Creatinine 1.29 Est Cr Clr Drug Dosing 49.9 Est GFR ( Amer) 59.4 Est GFR (Non-Af Amer) 51.3 BUN/Creatinine Ratio 11.3 Glucose 136 H Calcium 9.3 Phosphorus Magnesium Total Bilirubin 0.4 AST 24 ALT 28 Alkaline Phosphatase 87 Troponin I 0.059 H* Total Protein 7.4 Albumin 3.8 Globulin 3.6 Albumin/Globulin Ratio 1.1 Lipase 268 COVID-19 Eval Order Covid19 at [facility] SARS-CoV-2 (PCR) 04/28/21 04/28/21 04/29/21 17:09 21:31 02:58 WBC 5.75 RBC 4.46 L Hgb 14.2 Hct 40.8 L MCV 91.5 MCH 31.8 MCHC 34.8 RDW Std Deviation 41.1 RDW Coeff of Cole 12.2 Plt Count 164 MPV 9.4 Immature Gran % (Auto) 0.2 Neut % (Auto) 65.1 Lymph % (Auto) 23.0 [place] % (Auto) 10.3 Eos % (Auto) 1.2 Baso % (Auto) 0.2 Neut # (Auto) 3.75 Lymph # (Auto) 1.32 [place] # (Auto) 0.59 Eos # (Auto) 0.07 Baso # (Auto) 0.01 Immature Gran # (Auto) 0.01 Sodium Potassium Chloride Carbon Dioxide Anion Gap BUN Creatinine Est Cr Clr Drug Dosing Est GFR ( Amer) Est GFR (Non-Af Amer) BUN/Creatinine Ratio Glucose Calcium Phosphorus Magnesium Total Bilirubin AST ALT Alkaline Phosphatase Troponin I 0.090 H* Total Protein Albumin Globulin Albumin/Globulin Ratio Lipase COVID-19 Eval Order SARS-CoV-2 (PCR) NEGATIVE 04/29/21 04/29/21 02:58 02:58 WBC RBC Hgb Hct MCV MCH MCHC RDW Std Deviation RDW Coeff of Cole Plt Count MPV Immature Gran % (Auto) Neut % (Auto) Lymph % (Auto) [place] % (Auto) Eos % (Auto) Baso % (Auto) Neut # (Auto) Lymph # (Auto) [place] # (Auto) Eos # (Auto) Baso # (Auto) Immature Gran # (Auto) Sodium 145 Potassium 4.1 Chloride 114 H Carbon Dioxide 30 Anion Gap 1.0 L BUN 12 Creatinine 1.09 Est Cr Clr Drug Dosing 59.0 Est GFR ( Amer) 72.9 Est GFR (Non-Af Amer) 62.9 BUN/Creatinine Ratio 11.0 Glucose 101 H Calcium 8.8 Phosphorus 2.6 Magnesium 2.0 Total Bilirubin AST ALT Alkaline Phosphatase Troponin I 0.190 H* Total Protein Albumin Globulin Albumin/Globulin Ratio Lipase COVID-19 Eval Order SARS-CoV-2 (PCR) Medications Administered Current Inpatient Medications Aspirin (Aspirin 81 Mg Ectab) 81 mg PO QAM [facility] Stop: 05/29/21 08:59 Last Admin: 04/29/21 08:57 Dose: 81 mg Documented by: Fluvoxamine Maleate (Fluvoxamine Maleate 50 Mg Tab) 200 mg PO HS [facility] Stop: 05/28/21 20:59 Last Admin: 04/28/21 20:55 Dose: 200 mg Documented by: Heparin Sodium (Porcine) (Heparin Sod 5,000 Unit/0.5 Ml Vial) 5,000 units SQ Q12 MARY Stop: 05/28/21 20:59 Last Admin: 04/29/21 08:57 Dose: 5,000 units Documented by: Lisinopril (Lisinopril 10 Mg Tab) 10 mg PO DAILY MARY Stop: 05/28/21 20:59 Last Admin: 04/29/21 08:57 Dose: 10 mg Documented by: Lorazepam (Lorazepam 0.5 Mg Tab) 0.5 mg PO BID MARY Stop: 05/28/21 20:59 Last Admin: 04/29/21 09:00 Dose: 0.5 mg Documented by: Multivitamins (Multivitamin Tab) 1 tab PO QAM MARY Stop: 05/29/21 08:59 Last Admin: 04/29/21 08:57 Dose: 1 tab Documented by: Simvastatin (Simvastatin 20 Mg Tab) 20 mg PO QAM [facility] Stop: 05/29/21 08:59 Last Admin: 04/29/21 08:57 Dose: 20 mg Documented by: (1) Laceration of scalp Encounter type: initial encounter Qualified Code(s): S01.01XA - Laceration without foreign body of scalp, initial encounter
--- NOTE | 2021-04-29 12:49 | Hospitalist Progress Note ---
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 Consult cardiology-appreciate input and recommendation Likely to have pacemaker placement tomorrow-n.p.o. after midnight (2) S/P AVR (aortic valve replacement): (3) Hypertension: We will continue current medications for blood pressure except beta- guera Blood pressure is controlled (4) OCD (obsessive compulsive disorder): No acute anxiety and/or delirium Continue home medication DVT prophylaxis Subcu heparin CODE STATUS Full Admission and Anticipated Discharge Date Admission Date: April 28, 2021 Subjective 04/29/2021 The patient was seen and examined in telemetry unit Denies any symptoms today and did not have any more syncopal episode He did not have any bradyarrhythmias in monitor We will likely have pacemaker placement tomorrow Review of Systems Review of Systems: All systems reviewed and are unremarkable except as noted below Physical Exam Physical Exam: Lying in bed comfortably Constitutional: well developed and well nourished; not ill appearing Eyes: PERRL, conjunctivae normal, anicteric sclerae ENMT: external ear and nose normal, oropharynx normal Neck: trachea midline, no thyromegaly Respiratory: no respiratory distress Auscultation: lungs clear to auscultation bilaterally Cardiovascular: Rate/Rhythm: regular rate and regular rhythm Heart Sounds: + murmur (2/6 ejection systolic murmur over precordium) Extremities: + edema (Trace to 1+ edema bilaterally) Gastrointestinal (Abdomen): Inspection/Auscultation: abdomen not distended Percussion/Palpation: abdomen soft; abdomen nontender Musculoskeletal: No acute arthritis in any joint Neurologic: Alert, awake and oriented x3. No focal sensory and motor deficit appreciated Psychiatric: A+Ox3, euthymic affect Lymphatic: no cervical or axillary lymphadenopathy Results & Data Results & Data ([facility]) Vital Signs (Past 12 Hours) Vital Signs Temp Pulse Pulse Resp BP Pulse Ox 04/29/21 12:27 36.6 C 63 20 149/61 H 95 04/29/21 08:08 36.5 C 75 18 164/84 H 94 04/29/21 07:56 115 H 04/29/21 04:12 36.6 C 75 18 193/77 H 96 Laboratory Results Short CBC 04/28/21 04/29/21 Range/Units 15:20 02:58 WBC 6.26 5.75 (4.8-10.8) K/uL Hgb 14.9 14.2 (14.0-18.0) g/dL Hct 43.1 40.8 L (42-52) % Plt Count 175 164 (130-400) K/uL BMP 04/28/21 04/29/21 15:20 02:58 Sodium 143 145 Potassium 3.9 4.1 Chloride 109 H 114 H Carbon Dioxide 29 30 BUN 15 12 Creatinine 1.29 1.09 Glucose 136 H 101 H Calcium 9.3 8.8 Cardiac Enzymes 04/28/21 04/28/21 04/29/21 Range/Units 15:20 21:31 02:58 Troponin I 0.059 H* 0.090 H* 0.190 H* (0-0.045) ng/ml Liver Function 04/28/21 Range/Units 15:20 Total Bilirubin 0.4 (0.2-1) mg/dl AST 24 (15-37) U/L ALT 28 (12-78) U/L Alkaline Phosphatase 87 (45-117) U/L Albumin 3.8 (3.4-5.0) gm/dl Medications Administered Current Inpatient Medications Aspirin (Aspirin 81 Mg Ectab) 81 mg PO QAM MARY Stop: 05/29/21 08:59 Last Admin: 04/29/21 08:57 Dose: 81 mg Documented by: Fluvoxamine Maleate (Fluvoxamine Maleate 50 Mg Tab) 200 mg PO HS MARY Stop: 05/28/21 20:59 Last Admin: 04/28/21 20:55 Dose: 200 mg Documented by: Heparin Sodium (Porcine) (Heparin Sod 5,000 Unit/0.5 Ml Vial) 5,000 units SQ Q12 MARY Stop: 05/28/21 20:59 Last Admin: 04/29/21 08:57 Dose: 5,000 units Documented by: Lisinopril (Lisinopril 10 Mg Tab) 10 mg PO DAILY MARY Stop: 05/28/21 20:59 Last Admin: 04/29/21 08:57 Dose: 10 mg Documented by: Lorazepam (Lorazepam 0.5 Mg Tab) 0.5 mg PO BID [facility] Stop: 05/28/21 20:59 Last Admin: 04/29/21 09:00 Dose: 0.5 mg Documented by: Multivitamins ([facility]ivitamin Tab) [facility] Stop: 05/29/21 08:59 Last Admin: 04/29/21 08:57 Dose: 1 tab Documented by: Simvastatin (Simvastatin 20 Mg Tab) 20 mg PO QAM [facility] Stop: 05/29/21 08:59 Last Admin: 04/29/21 08:57 Dose: 20 mg Documented by:
[2021-04-29] MEDS: hydrALAZINE HCL 20 MG/ML VIAL IV PRN ×2 (16:30→21:43)
[2021-04-29] MEDS ORDERED: Nursing to Pharmacy Communication SCH (17:30)
[2021-04-29] MEDS: fluvoxaMINE MALEATE 50 MG TAB PO SCH (17:31)
[2021-04-29] MEDS: NITROGLYCERIN 2% OINTMENT 30GM TUBE EXT SCH (20:09)
[2021-04-29] MEDS ORDERED: ACETAMINOPHEN 325 MG TAB PO STA (21:49)
[2021-04-30] MEDS: NITROGLYCERIN 2% OINTMENT 30GM TUBE EXT SCH ×3 (01:35→13:13)
[2021-04-30] MEDS: hydrALAZINE HCL 20 MG/ML VIAL IV PRN (05:44)
[2021-04-30 06:46] LABS: BUN Creatinine Ratio 9.1 (10-20); Calcium 9.2 mg/dl (8.5-10.1); Creatinine Clr Calc Pharmacy 58.5 ml/min; Est GFR (African American) 72.1 ml/min; Est GFR (Non-African American) 62.2 ml/min; Potassium 3.7 mmol/L (3.5-5.1)
[2021-04-30] MEDS: SIMVASTATIN 20 MG TAB PO SCH (07:49)
[2021-04-30] MEDS: MULTIVITAMIN TAB PO SCH (07:49)
[2021-04-30] MEDS: lisinopril 10 MG TAB PO SCH (07:49)
[2021-04-30] MEDS: ASPIRIN 81 MG ECTAB PO SCH (07:49)
[2021-04-30] MEDS: LORazepam 0.5 MG TAB PO SCH (07:51)
[2021-04-30] MEDS: HEPARIN SOD 5,000 UNIT/0.5 ML VIAL SQ SCH (07:52)
--- NOTE | 2021-04-30 09:22 | History & Physical Bridge Note ---
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
--- NOTE | 2021-04-30 09:22 | Pre Anesthesia Assessment ---
Date of Service April 30, 2021 Pre Sedation Assessment Vital Signs Temp Pulse Pulse Resp BP BP Pulse Ox 04/30/21 08:52 108 H 176/97 H 04/30/21 07:47 36.7 C 96 H 18 192/86 H 195/91 H 96 04/30/21 07:43 211/92 H 04/30/21 07:42 94 H 202/83 H 04/30/21 03:43 36.6 C 98 H 20 189/92 H 96 04/30/21 01:39 131/93 04/30/21 00:07 192/88 H 04/29/21 23:51 36.5 C 93 H 20 198/101 H 95 04/29/21 23:23 94 H 04/29/21 22:44 182/75 H 04/29/21 21:04 186/102 H 04/29/21 19:52 36.9 C 98 H 20 193/103 H 96 04/29/21 18:15 197/88 H 04/29/21 17:30 196/96 H 04/29/21 15:40 36.9 C 78 18 195/79 H 95 04/29/21 15:22 69 04/29/21 12:27 36.6 C 63 20 149/61 H 95 Cardiovascular + regular rhythm Respiratory normal respiratory effort, lungs clear to auscultation Pre-Sedation Airway Assessment Smoking Status: Never smoker ASA: ASA3 NPO Status Date of Last Intake of Fluids: 04/29/21 Date of Last Intake of Solid Food: 04/29/21 Procedure Planning Contraindications for Sedation: none Current Medications Reviewed: Yes Notes The planned sedation has been discussed with the patient. Informed Consent was obtained. I have identified the patient, determined the appropriateness of sedation and have assessed the patient immediately prior to the procedure. All medicine(s) and interventions are by my order.
[2021-04-30] MEDS ORDERED: CLINDAMYCIN PHOS 300 MG/2 ML VIAL ONE (09:30)
[2021-04-30] MEDS ORDERED: fentaNYL citrate 100 MCG/2 ML VIAL ONE (10:32)
[2021-04-30] MEDS ORDERED: MIDAZOLAM HCL 1 MG/ML 2ML VIAL ONE (10:32)
[2021-04-30] MEDS ORDERED: LIDOCAINE 1% LOCAL 20 ML VIAL ONE (10:44)
[2021-04-30] MEDS ORDERED: VANCOMYCIN HCL 1000MG/20ML VIAL ONE (10:44)
[2021-04-30] MEDS ORDERED: BUPIVACAINE 0.25% 30 ML VIAL ONE (10:44)
[2021-04-30] MEDS ORDERED: SODIUM CHLORIDE 0.9% INJ 10 ML VIAL ONE (10:44)
[2021-04-30] MEDS ORDERED: METOPROLOL TARTRATE 1 MG/ML VIAL IV ONE (11:52)
--- NOTE | 2021-04-30 12:03 | Post Anesthesia Assessment ---
Date of Service April 30, 2021 Post Sedation Assessment Vital Signs Temp Pulse Pulse Resp BP BP Pulse Ox 04/30/21 09:26 85 17 166/109 H 97 04/30/21 09:23 88 04/30/21 08:52 108 H 176/97 H 04/30/21 07:47 36.7 C 96 H 18 192/86 H 195/91 H 96 04/30/21 07:43 211/92 H 04/30/21 07:42 94 H 202/83 H 04/30/21 03:43 36.6 C 98 H 20 189/92 H 96 04/30/21 01:39 131/93 04/30/21 00:07 192/88 H 04/29/21 23:51 36.5 C 93 H 20 198/101 H 95 04/29/21 23:23 94 H 04/29/21 22:44 182/75 H 04/29/21 21:04 186/102 H 04/29/21 19:52 36.9 C 98 H 20 193/103 H 96 04/29/21 18:15 197/88 H 04/29/21 17:30 196/96 H 04/29/21 15:40 36.9 C 78 18 195/79 H 95 04/29/21 15:22 69 04/29/21 12:27 36.6 C 63 20 149/61 H 95 Recovery Score Activity: Moves 4 extremities Respiration: Deep Breath/Cough Circulation: +/-20% PreAnes Value Consciousness: Fully Awake Oxygen Saturation: > 92% On Room Air Discharge Sedation Level of Care: Fast Track Phase II Post Sedation Plan On clinical assessment, the patient appears to have tolerated the sedation without complications. Patient is recovering as anticipated. Patient will continue to be monitored by nursing and may be discharged when sedation discharge criteria are met per below protocol. Upon Completions of procedure up to 15 minutes continue every 5 minute vital signs and the P.A.R. score; then discharge to a Phase I or Fast Track to Phase II per the following guidelines: * Discharge Patient to appropriate Phase II area if PAR is 8 or greater or return to pre- procedure baseline. The post - procedure orders will be as directed. * If PAR score is less than 8 or not return to pre-procedure baseline then patient will follow Phase I monitoring till PAR is reached for Phase II. The Phase I may be done in procedure room or may call to secure a Phase I area. * If naloxone or flumazenil are used for reversal, hold in Phase I for continued monitoring from when last reversal dose was given for a minimum of 60 minutes or longer pending the nurse and/or physician discretion of patient condition before discharge to Phase II. Please call the Sedation Physician to re-evaluate and complete post-note for discharge to Phase II area. Do NOT discharge from procedure sedation or Phase 1 until post- sedation evaluation note is complete by procedure /sedation MD Sedation Discharge Instructions to be given to the patient at discharge to home.
--- NOTE | 2021-04-30 12:04 | Operative Report ---
Post Operative Report Pre & Post Diagnosis Syncope, intermittent high degree AV block, LBBB Operation Date: 04/30/21 09:30 <No data on this case meets the specified criteria> I identified the patient and participated in the time-out.: Yes Procedure Operation Date: 04/30/21 09:30 Actual Procedures p Pacer with A/V Leads (Dual) - Mandy Guillermo DO Surgeon Mandy Guillermo, Screening Nurse none Estimated Blood Loss 25 Findings Consistent with Post-Op Diagnosis Specimens none Description of Procedure see official report I attest to the content of the Intraoperative Record and any orders documented therein. Any exceptions are noted below.
--- NOTE | 2021-04-30 14:31 | Hospitalist Progress Note ---
Date of Service April 30, 2021 Assessment & Plan (1) Syncopal episodes: He has been having episodes of syncope Likely secondary to tachybradycardia syndrome Was seen by nnps yesterday and is planned for emergent pacemaker placement Has had another syncope today and was sent into the emergency room Remains a stable hemodynamically We will admit to telemetry unit and will hold off any beta-guera We will get serial troponins as initial troponin is mildly elevated. Consult cardiology-appreciate input and recommendation Likely to have pacemaker placement tomorrow-n.p.o. after midnight Will have pacemaker placement this morning Likely discharge following pacemaker implantation (2) S/P AVR (aortic valve replacement): (3) Hypertension: We will continue current medications for blood pressure except beta- guera Was noted to be very high this morning likely secondary to anxiety Managed appropriately (4) OCD (obsessive compulsive disorder): No acute anxiety and/or delirium Continue home medication DVT prophylaxis Subcu heparin CODE STATUS Full Admission and Anticipated Discharge Date Admission Date: April 28, 2021 Subjective 04/29/2021 The patient was seen and examined in telemetry unit Denies any symptoms today and did not have any more syncopal episode He did not have any bradyarrhythmias in monitor We will likely have pacemaker placement tomorrow 04/30/2021 The patient was seen and examined in telemetry unit He was noted to be very anxious this morning with increasing blood pressure He is going to have pacemaker implantation this morning Review of Systems Review of Systems: All systems reviewed and are unremarkable except as noted below Physical Exam Physical Exam: Lying in bed being very anxious Constitutional: well developed and well nourished; not ill appearing Eyes: PERRL, conjunctivae normal, anicteric sclerae ENMT: external ear and nose normal, oropharynx normal Neck: trachea midline, no thyromegaly Respiratory: no respiratory distress Auscultation: lungs clear to auscultation bilaterally Cardiovascular: Rate/Rhythm: regular rate and regular rhythm Heart Sounds: + murmur (2/6 ejection systolic murmur over precordium) Extremities: + edema (Trace to 1+ edema bilaterally) Gastrointestinal (Abdomen): Inspection/Auscultation: abdomen not distended Percussion/Palpation: abdomen soft; abdomen nontender Musculoskeletal: No acute arthritis in any joint Neurologic: Alert, awake and oriented x3, no focal sensory and motor deficit appreciated Psychiatric: A+Ox3, euthymic affect Lymphatic: no cervical or axillary lymphadenopathy Results & Data Results & Data ([facility]) Vital Signs (Past 12 Hours) Vital Signs Temp Pulse Pulse Resp BP BP Pulse Ox 04/30/21 13:41 84 18 125/79 95 04/30/21 13:10 79 18 148/88 H 95 04/30/21 12:38 72 18 159/80 H 97 04/30/21 12:10 85 15 127/91 95 04/30/21 09:26 85 17 166/109 H 97 04/30/21 09:23 88 04/30/21 08:52 108 H 176/97 H 04/30/21 07:47 36.7 C 96 H 18 192/86 H 195/91 H 96 04/30/21 07:43 211/92 H 04/30/21 07:42 94 H 202/83 H 04/30/21 03:43 36.6 C 98 H 20 189/92 H 96 Laboratory Results [facility] 04/30/21 05:47 Sodium 141 Potassium 3.7 Chloride 109 H Carbon Dioxide 26 BUN 10 Creatinine 1.10 Glucose 101 H Calcium 9.2 Medications Administered Current Inpatient Medications Aspirin (Aspirin 81 Mg Ectab) 81 mg PO QAM [facility] Stop: 05/29/21 08:59 Last Admin: 04/30/21 07:49 Dose: 81 mg Documented by: Fluvoxamine Maleate (Fluvoxamine Maleate 50 Mg Tab) 200 mg PO QDD [facility] Stop: 05/29/21 17:29 Last Admin: 04/29/21 17:31 Dose: 200 mg Documented by: Heparin Sodium (Porcine) (Heparin Sod 5,000 Unit/0.5 Ml Vial) 5,000 units SQ Q12 MARY Stop: 05/28/21 20:59 Last Admin: 04/30/21 07:52 Dose: Not Given Documented by: Hydralazine HCl (Hydralazine Hcl 20 Mg/Ml Vial) 10 mg IV Q6H PRN PRN Reason: Blood Pressure - High Stop: 05/29/21 16:29 Last Admin: 04/30/21 05:44 Dose: 10 mg Documented by: Lisinopril (Lisinopril 10 Mg Tab) 10 mg PO DAILY [facility] Stop: 05/28/21 20:59 Last Admin: 04/30/21 07:49 Dose: 10 mg Documented by: Lorazepam (Lorazepam 0.5 Mg Tab) 0.5 mg PO BID [facility] Stop: 05/28/21 20:59 Last Admin: 04/30/21 07:51 Dose: 0.5 mg Documented by: Metoprolol Tartrate (Metoprolol Tartrate 25 Mg Tab) 25 mg PO BID [facility] Stop: 05/30/21 20:59 Multivitamins (Multivitamin Tab) 1 tab PO [facility] Stop: 05/29/21 08:59 Last Admin: 04/30/21 07:49 Dose: 1 tab Documented by: Nitroglycerin (Nitroglycerin 2% Ointment 30gm Tube) 0.5 inch EXT Q6H [facility] Stop: 05/29/21 19:59 Last Admin: 04/30/21 13:13 Dose: 0.5 inch Documented by: Simvastatin (Simvastatin 20 Mg Tab) [facility] Stop: 05/29/21 08:59 Last Admin: 04/30/21 07:49 Dose: 20 mg Documented by:
--- NOTE | 2021-04-30 14:54 | XRay Report ---
XR chest 1V not portable HISTORY: Status post pacemaker placement. COMPARISON: Chest 04/28/2021. FINDINGS: There are low lung volumes. There is a left-sided dual-chamber pacemaker. The leads appear intact. No pneumothorax. No pleural effusions. There are poststernotomy changes and an aortic valve p rosthesis. No focal lung consolidations to suggest pneumonia. No evidence for pulmonary edema. The he art is normal in size. IMPRESSION: Status post left-sided dual-chamber pacemaker. No pneumothorax. ACT 112: Negative or not required by law. Electronically signed by: Jovani Zepeda M.D. 04/30/2021 2:53 PM
[2021-04-30] MEDS ORDERED: METOPROLOL TARTRATE 25 MG TAB PO SCH ×2 (16:00→21:00)
[2021-04-30] MEDS: fluvoxaMINE MALEATE 50 MG TAB PO SCH (16:57)
--- NOTE | 2021-04-30 17:02 | Discharge Summary ---
Date of Service April 30, 2021 Admission HPI Per Admitting Provider He is an 80-year-old male with significant past medical history of status post aortic valve replacement, hypertension, CAD mild disease by cath in 2018, VINCENT, obsessive-compulsive disorder, hyperlipidemia and chronic kidney disease was evaluated by cardiac electrophysiology yesterday for an emergent pacemaker. He has been complaining of syncopal episode due to ronna-arrhythmia for a while and was sent in to ER today by the parasitologist for admission and emergent cardiac pacemaker placement. He denies any chest pain but does have palpitation. Denies any shortness of breath. No fever no chills, and abdominal pain nausea no vomiting. He does not have any neurological symptoms. He was hemodynamically stable in the emergency room with blood pressure on the higher side at 173/87. An EKG did not show any significant bradyarrhythmias. He was admitted to telemetry unit for continuation of care and possible pacemaker placement on Friday. Admission Exam Per Admitting Provider Physical Exam: Lying in bed comfortably Constitutional: well developed and well nourished; not ill appearing Eyes: PERRL, conjunctivae normal, anicteric sclerae ENMT: external ear and nose normal, oropharynx normal Neck: trachea midline, no thyromegaly Respiratory: no respiratory distress Auscultation: lungs clear to auscultation bilaterally Cardiovascular: Rate/Rhythm: regular rate and regular rhythm Heart Sounds: + murmur (2/6 ejection systolic murmur over precordium) Extremities: + edema (Trace to 1+ edema bilaterally) Gastrointestinal (Abdomen): Inspection/Auscultation: abdomen not distended Percussion/Palpation: abdomen soft; abdomen nontender Musculoskeletal: No acute arthritis in any joint Neurologic: Alert, awake and oriented x3. No focal sensory or no motor deficit appreciated Psychiatric: A+Ox3, euthymic affect Lymphatic: no cervical or axillary lymphadenopathy Principal Diagnosis Tachybradycardia syndrome status post permanent pacemaker. Recurrent syncope secondary to tachybradycardia syndrome, hypertension Discharge Exam Constitutional well developed and well nourished; not ill appearing Eyes PERRL, conjunctivae normal, anicteric sclerae ENMT external ear and nose normal, oropharynx normal Neck trachea midline, no thyromegaly Respiratory no respiratory distress Auscultation: lungs clear to auscultation bilaterally Cardiovascular Rate/Rhythm: regular rate and regular rhythm Heart Sounds: + murmur (2/6 ejection systolic murmur over precordium) Extremities: + edema (Trace to 1+ edema bilaterally) Gastrointestinal (Abdomen) Inspection/Auscultation: abdomen not distended Percussion/Palpation: abdomen soft; abdomen nontender Psychiatric A+Ox3, euthymic affect Lymphatic no cervical or axillary lymphadenopathy Discharge Data Allergies Allergy/AdvReac Type Severity Reaction Status Date / Time cephalexin AdvReac Intermediate diarrhea Verified 04/28/21 15:39 metronidazole AdvReac Intermediate diarrhea Verified 04/28/21 15:39 Consultations 04/28/21 17:02 ED Decision to Admit Stat 04/28/21 18:11 Consult Cardiology Routine Procedures Performed Operation Date: 04/30/21 09:30 Actual Procedures p Pacer with A/V Leads (Dual) - Mandy Guillermo DO s Venogram, Unilateral - Mandy Guillermo DO Ordered Studies 04/28/21 14:41 CT cervical spine wo con Stat CT head/brain wo con Stat 04/30/21 10:44 CL Cath Imgs for PACS use only Routine Hospital Course (1) Syncopal episodes: He has been having episodes of syncope Likely secondary to tachybradycardia syndrome Was seen by brush maker yesterday and is planned for emergent pacemaker placement Has had another syncope today and was sent into the emergency room Remains a stable hemodynamically We will admit to telemetry unit and will hold off any beta-guera We will get serial troponins as initial troponin is mildly elevated. Consult cardiology-appreciate input and recommendation Likely to have pacemaker placement tomorrow-n.p.o. after midnight Will have pacemaker placement this morning Likely discharge following pacemaker implantation (2) S/P AVR (aortic valve replacement): (3) Hypertension: We will continue current medications for blood pressure except beta- guera Was noted to be very high this morning likely secondary to anxiety Managed appropriately (4) OCD (obsessive compulsive disorder): No acute anxiety and/or delirium Continue home medication DVT prophylaxis Subcu heparin CODE STATUS Full Total Time Total Time Spent Total Time Spent (In Minutes): 35 minutes Total Time Includes: Examination of the Patient, Discharge Planning, Medication Reconciliation and Communication With Other Providers Discharge Plan Discharge Items Patient Disposition: Home - Self-Care Reason For Visit: TACHY-RONNA SYNDROME Discharge Diagnosis: Tachybradycardia syndrome status post permanent pacemaker. Recurrent syncope secondary to tachybradycardia syndrome, hypertension Condition on Discharge: Fair Activity: As commented below Activity Comment: do not lift the left elbow over the left shoulder for 1 month Lifting: No more than 10 pounds Lifting Comment: do not lift more than 10 pounds with the left arm for 2 weeks Bathing: Keep incision dry Bathing Comment: keep dressing on & dry until next Monday 05/07 Sexual Activity: After two weeks Non-emergency contact: Primary Care Provider Call non-emergency contact if: you have any medication questions and your symptoms worsen Follow-up/Referrals: Sudhir Roberts MD [Primary Care Provider] - (Your doctor's office will call with an appointment within 7 days) Diet: Heart Healthy Addtl Attending Provider Instructions: Send a remote check from your pacemaker tomorrow morning 05/01 Start metoprolol 25mg by mouth 2x a day If you notice any swelling at the device site call [facility] immediately Wound check next week Friday05/11/2021 at 8am Pending Studies at Discharge: No Stand-Alone Forms: My [facility] [place], Smoking Cessation Medications and DC Order Prescriptions: New metoprolol tartrate 25 mg tablet 25 mg PO BID 30 Days Qty: 60 RF: 0 Continued multivitamin Tablet 1 tab PO QAM RF: 0 aspirin [Aspirin Low Dose] 81 mg Tablet,Delayed Release (Dr/Ec) 81 mg PO QAM RF: 0 lorazepam 0.5 mg tablet 0.5 mg PO BID RF: 0 fluvoxamine 100 mg tablet 200 mg PO HS RF: 0 simvastatin 20 mg tablet 20 mg PO QAM RF: 0 lisinopril 10 mg tablet 10 mg PO DAILY RF: 0 Discontinued metoprolol tartrate 25 mg tablet 25 mg PO QAM RF: 0 Discharge Orders: Discharge Order (Routine); Ordered 04/30/21 Ordered By: Jany Bates Admission Data Admit Date/Time: 04/28/21 18:04 Attending Provider: Jany Bates Admit Provider: Jany Bates Primary Care Provider: Sudhir Roberts Other Providers: Jany Bates ; Ozzy Dye Other Interventions: Discharge Summary Assessment (RN) Last Done: 04/30/21 16:49
--- NOTE | 2021-04-30 21:16 | Operative Report (OR) ---
DATE OF PROCEDURE: 04/30/2021. PREOPERATIVE DIAGNOSES: Tachybrady syndrome, intermittent complete heart block, syncope. POSTOPERATIVE DIAGNOSES: Tachybrady syndrome, intermittent complete heart block, syncope. PROCEDURE: Dual-chamber rate responsive permanent pacemaker under fluoroscopic guidance along with a peripheral venogram and intracardiac electrogram His bundle recording. SURGEON: Mandy Guillermo DO. ASSISTANTS: None. ANESTHESIA: Monitored conscious sedation was administered under my supervision by Erin Corbin. Start time 11:06, end time 11:58. Total of 5 mg of Versed and 150 mcg of fentanyl. INTRAVENOUS FLUIDS: 30 mL. ANTIBIOTICS: 600 mg of clindamycin. BLOOD LOSS: 25 mL. CONTRAST: 15 mL. URINE OUTPUT: Not applicable. SPECIMENS: None. FINDINGS: See below. DRAINS: None. INDICATIONS: This is an 80-year-old gentleman with a past medical history for recurrent syncope, levi pected to be due to intermittent complete heart block as he has a left bundle branch block and he is status post aortic valve replacement, hypertension, hyperlipidemia, gastroesophageal reflux disease, paroxysmal atrial tachycardia, basal cell carcinoma and evidence of tachybrady syndrome. He was due to have a pacemaker as an outpatient later this month; however, presented to the hospital due to anot her syncopal episode, so he was recommended an inpatient pacemaker. CONSENT: Consent was obtained prior to the patient going into the electrophysiology lab. The patien t was informed of the risks, benefits, and alternatives of the procedure. Risks include but not limi amanuel to sudden cardiac , cardiac arrhythmias, cerebrovascular accident, myocardial infarction, in jury to the blood vessels, chamber of the heart and lung, bleeding, and infection. The patient under stood these risks and agreed to the procedure as planned. Informed consent was obtained. DESCRIPTION OF PROCEDURE: The patient was brought into the electrophysiology lab in a fasting state. He was connected to continuous cardiac monitoring. A time-out was performed to ensure the patient' s identity and the procedure correctly. He was prepped and draped over the left infraclavicular spac e in normal surgical standard fashion. Monitored conscious sedation was given throughout the procedu re for the patient's comfort level. Forman precautions were maintained throughout the procedure. 10 mL of 1% lidocaine-bupivacaine mixture were given in the left deltopectoral groove. An incision w as made in the left deltopectoral groove. Blunt dissection was performed down and a pacemaker pocket was created using blunt dissection of the pectoralis muscle within the pectoralis fascia. A periphe ral venogram was performed to identify the axillary vein. Venous axillary access was obtained throug h a needlestick without any problem. A guidewire was inserted through the needle without any resista nce. A 7-Bolivian sheath was inserted over the guidewire without any resistance. The dilator was marisa karen and a second guidewire was inserted through the sheath to allow for retained venous access. The sheath was removed, flushed and reinserted over the dilator, and then reinserted over one of the guid ewires. The guidewire and dilator removed. Then, the right atrial lead was advanced through the 7-Bolivian sheath and temporarily positioned into the right ventricle for backup pacing. Then, a second 7-Bolivian sheath was inserted over the retained guidewire without any resistance. Guidewire and dilator removed. Then, the His C315 catheter was a dvanced into the right ventricle over a Glidewire. The Glidewire and dilator removed and the left bu ndle lead was advanced through the sheath and intracardiac electrogram His bundle recording was perfo rmed, see below for results. Then, with the camera in JOHNSON 30, the His bundle area was marked on the fluoroscopy screen and we cam e down about 2 cm from that in a line that would extend out to the apex to have an idea where we want ed to position our left bundle lead. The sheath was positioned back in that area. We came on pacing , saw a nice W form in our QRS pacing pattern in V1. We then moved the camera to UZBEK 30 and I start ed giving clockwise screws to turn the lead into the septum. We already had an R prime when I stopped . I gave a little bit of puff of contrast, I was right at the ring, so I gave a few more clockwise tu rns and then another puff of contrast to see that I was well into the ring. Then, the His C315 sheat h was slit under fluoroscopic guidance. Then, I went back to the right atrial lead that was temporar iris placed for backup pacing in the right ventricle, unscrewed that lead and positioned it into the r ight atrial appendage under fluoroscopic guidance. There was adequate pacing and sensing threshold w ith no diaphragmatic stimulation at high output pacing. The 7-Bolivian sheath in the right atrial lead was peeled away and lead was fixated to the pectoralis muscle using 0 silk suture. The 7-Bolivian sheath over the left bundle lead was then peeled away and lead was fixated to the pector anne muscle using 0 silk suture. Then, the pocket was flushed with copious amounts of vancomycin flu sh and inspected for hemostasis. The leads were then attached to the pulse generator making sure the pins were in appropriate position, passed set screws and the set screws were all tightened. The pac emaker was then placed in a TYRX pouch and then placed in the pocket, making sure the leads were lyin g flat beneath the device. The incision was then closed in a 3-layer fashion using 2-0 Vicryl interr upted suture followed by 3-0 Vicryl interrupted suture, followed by 4-0 Monocryl running stitch, and Dermabond was applied followed by Telfa and micropore dressing. EQUIPMENT: 1. Pulse generator is a Tiggly Laury XT DR JEFF Rogers [id number], serial number [id number]. 2. TYRX pouch, reference [id number], lot number [id number]. 3. Right atrial lead, Medtronic 5076-58 cm, serial number [id number]. 4. Left bundle lead, Medtronic 3830-69 cm, serial number [id number]. INTRAOPERATIVE TESTIN. Intracardiac electrogram His bundle recording, AH 110 milliseconds, HV 30 milliseconds. 2. Right atrial lead, P waves 5.9 millivolts, impedance 636 ohms, threshold 0.7 volts at 0.5 millise conds. 3. Left bundle lead, R waves 16.5 millivolts, impedance 939 ohms, threshold 0.7 volts at 0.5 millise conds. FINAL PARAMETERS THROUGH THE DEVICE: 1. Right atrial lead, P waves 1.1 millivolts, impedance 532 ohms, threshold 0.5 volts at 0.4 millise conds. 2. Left bundle lead, R waves 20 millivolts, impedance 855 ohms, threshold 0.5 volts at 0.4 milliseco nds. FINAL PARAMETERS: 1. DDD 60/130. 2. Right atrial amplitude 3.5 volts, pulse width 0.4 milliseconds, sensitivity 0.3 millivolts. 3. Left bundle amplitude 3.5 volts, pulse width 0.4 milliseconds, sensitivity 0.9 millivolts. IMPRESSION: Successful dual chamber rate responsive permanent pacemaker under fluoroscopic guidance along with intracardiac electrogram His bundle recording and peripheral venogram secondary to tachybr iron syndrome, syncope, left bundle branch block and intermittent complete heart block. PLAN: Monitor the patient postprocedure, chest x-ray, EKG and recheck the device in a couple of hour s. He is not to lift the left elbow or left shoulder for 1 month. He cannot lift more than 10 pound s with the left arm for 2 weeks. He is to keep the dressing on and dry until next Friday. He has a wound check next week and he will send a remote check tomorrow through his device. Also, he can rest art metoprolol at a higher dose, metoprolol tartrate 25 twice a day. Job ID: [id number]
--- NOTE | 2021-05-02 17:19 | Electrocardiogram Report ---
Test Reason : Blood Pressure : / mmHG Vent. Rate : 088 BPM Atrial Rate : 088 BPM P-R Int : 124 ms QRS Dur : 112 ms QT Int : 370 ms P-R-T Axes : 065 -22 124 degrees QTc Int : 447 ms Normal sinus rhythm Left bundle branch block Abnormal ECG Confirmed by Jaquan Underwood ([id number]) on 05/02/2021 5:18:49 PM Referred By: Ziyad Mccarty Confirmed By:Avni Underwood
== END 2021-04-30 17:23 | disposition home or self-care (01) | DRG 243 ==
LOC: ED 14:32 → 2S 18:04